=== PATIENT | female | born 1995 | race Caucasian/White ===

== ENCOUNTER 2022-06-13 13:50 | Outpatient (CLI) | payer BC, SELFPAY ==
--- NOTE | 2022-06-13 14:00 | CRLHL7_ITS ---
For Patients: As a result of the Century Cures Act, medical imaging exams and procedure reports are released immediately into your electronic medical record. You may view this report before your referring provider. If you have questions, please contact your health care provider. INDICATION: First trimester scan, establish dates. TECHNIQUE: Real-time nichole-scale imaging of the pelvis was performed. FINDINGS: Sonographic imaging demonstrates a single living intrauterine gestation. The embryo demonstrates a regular cardiac rate measuring 165 beats per minute. The embryo`s crown-rump length measurement of 7.1 cm corresponds to a gestational age of 13 weeks 2 days with a sonographic due date of 12/17/2022. There is a normal-appearing yolk sac. Right ovarian corpus luteum cyst. Left ovary not seen. IMPRESSION: Normal first trimester OB ultrasound exam. Gestational age calculated at 13 weeks 2 days with a sonographic due date of 12/17/2022 . Dictated by Jyoti Ontiveros MD @ 06/13/2022 5:59:52 PM (Electronically Signed)
== END 2022-06-13 13:51 | disposition home or self-care (01) ==
LOC: US 13:51
PROVIDERS: Visit Provider Advanced Practice Midwife
DX: Z34.91 Encounter for supervision of normal pregnancy, unspecified, first trimester (principal); Z3A.13 13 weeks gestation of pregnancy
CPT/HCPCS: 76801

== ENCOUNTER 2022-07-03 13:54 | Outpatient (CLI) | payer BC, SELFPAY ==
[2022-07-03 19:50] LABS: Hepatitis B Surface Antigen* Negative (Negative)
[2022-07-03 19:58] LABS: HIV 1/2/P24 Combo Screen* Negative (Negative)
[2022-07-03 20:07] LABS: Hepatitis C Virus Antibody* Negative (Negative)
[2022-07-05 14:27] LABS: Rapid Plasma Reagin (RPR) Non Reactive (Non Reactive)
[2022-07-05 15:17] LABS: Rubella Antibody IgG 13.5 IU/mL
== END 2022-07-03 13:55 | disposition home or self-care (01) ==
LOC: NFLDREF 16:46
PROVIDERS: Visit Provider Advanced Practice Midwife
DX: Z34.90 Encounter for supervision of normal pregnancy, unspecified, unspecified trimester (principal)
CPT/HCPCS: 86592; 86703; 86762; 86787; 86803; 86850; 86900; 86901; 87086; 87186; 87340

== ENCOUNTER 2022-07-31 13:58 | Outpatient (CLI) | payer BC, SELFPAY ==
--- NOTE | 2022-07-31 14:00 | CRLHL7_ITS ---
For Patients: As a result of the Century Cures Act, medical imaging exams and procedure reports are released immediately into your electronic medical record. You may view this report before your referring provider. If you have questions, please contact your health care provider. INDICATION: Evaluate anatomy. COMPARISON: 06/13/2022 TECHNIQUE: Real time nichole scale imaging of the fetus was performed as well as color Doppler analysis of the umbilical vessels. FINDINGS: Sonographic imaging demonstrates a single living intrauterine gestation. Fetus demonstrates a regular cardiac rate of 154 beats per minute. Fetus has a variable position. The placenta lies posteriorly without evidence of placenta previa. The edge of the placenta is located 3.8 cm from the internal cervical os. Amniotic fluid volume appears normal. Single deepest vertical pocket: 4.5 cm. The cervix is closed and measures 3.9 cm in length. The composite ultrasound gestational age is calculated at 19 weeks 2 days with an estimated sonographic due date of 12/23/2022. The estimated weight is 297 grams which lies at the 9th %. The following biometric measurements were obtained: Biparietal diameter: 4.3 cm/18 weeks 6 days 5th% Head circumference: 16.5 cm/19 weeks 1 day 4th% Abdominal circumference: 15.0 cm/20 weeks 2 days 38th% Femur length: 2.9 cm/18 weeks 5 days 4th% The HC/AC ratio measures: 1.10 range (1.09-1.26) On anatomic survey, there is a normal appearance of the cerebral ventricles, cavum septi pellucidi, cisterna magna and cerebellum. The nose, lips, and facial profile appear normal. The cervical, thoracic and lumbar spine are well visualized and appear normal. There is a normal four-chamber heart view and the left and right ventricular outflow tracts appear normal. The diaphragm and stomach appear normal. The kidneys and bladder also appear normal. There is a normal three-vessel cord and cord insertion site. The four extremities appear normal. IMPRESSION: No intrinsic abnormalities noted on anatomic survey. Sonographic gestational age 19 weeks 2 days and sonographic due date 12/23/2022. Sonographic age is 8 days behind the clinical age. Estimated weight 9th percentile. Abdominal circumference 38th percentile. Dictated by Marlon De La Vega MD @ 07/31/2022 4:05:10 PM (Electronically Signed)
== END 2022-07-31 13:59 | disposition home or self-care (01) ==
LOC: US 13:58
PROVIDERS: PCP Advanced Practice Midwife; Visit Provider Advanced Practice Midwife
DX: Z34.92 Encounter for supervision of normal pregnancy, unspecified, second trimester (principal); Z3A.19 19 weeks gestation of pregnancy
CPT/HCPCS: 76805

== ENCOUNTER 2022-09-26 12:00 | Outpatient (CLI) | payer BC, SELFPAY ==
--- NOTE | 2022-09-26 12:15 | CRLHL7_ITS ---
For Patients: As a result of the Cures Act, medical imaging exams and procedure reports are released immediately into your electronic medical record. You may view this report before your referring provider. If you have questions, please contact your health care provider. INDICATION: Third trimester scan, evaluate growth. IUGR COMPARISON: 07/31/2022 TECHNIQUE: Real time nichole scale imaging of the fetus was performed. FINDINGS: Sonographic imaging demonstrates a single living intrauterine gestation. Fetus demonstrates a regular cardiac rate of 159 beats per minute. Fetus has a breech position. The placenta lies posteriorly. Amniotic fluid volume appears normal and there is a single deepest vertical pocket: 4.5 cm. The estimated weight is 1225gm which lies at the 32nd %. On the prior OB ultrasound exam dated 07/31/2022 the estimated weight was at the 9th%. BPD 16th percentile. HC 12th percentile. AC 58th percentile. FL 14th percentile. The HC/AC ratio measures 1.05 range (1.01-1.21). IMPRESSION: Sonographic gestational age 28 weeks 2 days and sonographic due date of 12/17/2022. Correlation with dates. Normal interval growth. Estimated weight 32nd percentile. Abdominal circumference 58th percentile. Dictated by Marlon De La Vega MD @ 09/27/2022 12:58:01 PM (Electronically Signed)
== END 2022-09-26 12:01 | disposition home or self-care (01) ==
PROVIDERS: PCP Advanced Practice Midwife; Visit Provider Pediatrics Neonatal-Perinatal Medicine
DX: O36.5930 Maternal care for other known or suspected poor fetal growth, third trimester, not applicable or unspecified (principal); Z3A.28 28 weeks gestation of pregnancy
CPT/HCPCS: 76816; 86592

== ENCOUNTER 2022-11-21 13:41 | Outpatient (CLI) | payer BC, SELFPAY ==
[2022-11-22 16:19] LABS: Strep B DNA Probe NEGATIVE (Negative)
[2022-11-22 19:05] LABS: Strep B Pen/Amox Allergy No
== END 2022-11-21 13:42 | disposition home or self-care (01) ==
LOC: NFLDREF 13:41
PROVIDERS: PCP Advanced Practice Midwife; Visit Provider Advanced Practice Midwife
DX: Z34.93 Encounter for supervision of normal pregnancy, unspecified, third trimester (principal); Z3A.36 36 weeks gestation of pregnancy
CPT/HCPCS: 87081; 87653

== ENCOUNTER 2022-12-12 17:13 | Inpatient (IN) | payer BC, SELFPAY ==
[2022-12-12] VITALS (8 sets, daily range): BP systolic 96–120; BP diastolic 52–72; PULSE 77–98; BMI 25.2
--- NOTE | 2022-12-12 17:51 | W.PM.LDBA ---
Subjective History of Present Illness Time Seen by Provider: 17:51 Date Seen: 12/12/22 Comments: Patient is being admitted to Labor and Delivery for active labor, imminent delivery. She is a 27 year old at weeks gestation. Her full history and physical was dictated by Jorge Castañeda on 11/28/22. Please see this for details. ? Caro was seen in the clinic today where she requested a membrane sweep. She was found to be 5-6/80/-1, membrane sweep done. She arrived to labor & delivery in active labor, and spontaneous baring down shortly after. She declined to get in the tub for a waterbirth. She is coping well with labor pain/contractions. Her Lorenzo is with her for support. She is planning to go unmedicated. OB Problem List: -Lorenzo (chiropractor). 4 boys at home (at [facility] ages 6 years old to 8 months) Possibly plans to do 1 week of home glucose testing 1. Closely space pregnancies. Last 10/22/2021 2. Hx 3rd degree laceration w/o repair with 1st delivery 3. Hx shoulder dystocia. Unclear how long, how severe, and what was done to resolve it. Poor documentation. Possible body dystocia vs shoulder vs nuchal cordx3 and body cordx1. (first baby, 8 lb 13 oz, came out with both hands up. Other babies were 9 lbs, 8lbs 13oz, and 8lbs, 1 oz) 4. E.Coli in urine at B Declines treatment at this time, recommended antibiotics. Going to try home management. Declines CARMENZA 5. IUGR 9%ile at Anatomy Scan, RESOLVED Agrees to follow-up Level II/consult with Dr. Machado; 09/26/22 US showed 32% for growth H & P done 11/28/22 by Jorge Castañeda OB - Problem Based A/P Additional Plan (1) Uterine contractions: Status: Acute Plan at 39.4 weeks GBS neg Active labor, imminent delivery Hx of 3rd degree laceration Hx of possible shoulder dystocia Admit to L & D Intermittent monitoring per protocol Candidate for analgesia of choice, planning unmedicated Candidate for waterbirth, consent signed and Hep C negative Delivery imminent. Delivery/Labor/Induction Plan Plan: expectant management OB Exam Physical Exam Vital signs: Pulse BP 83 109/58 L 04/04/23 17:43 12/12/22 17:43 Narrative: VSS, afebrile? General Appearance:? Calm, cooperative.? No acute distress.? Normal affect.? Psychiatric Exam: Alert and oriented, appropriate affect? HEENT: normocephalic, neck supple, full ROM? Respiratory:? Symmetrical chest wall movement.? Normal respiratory effort.? Abdomen: Gravid, non tender? Extremities:? normal and trace edema? Skin: warm, dry.??? Ctx:? Q 2-3 min apart.? ? ? Strong? FHTs:? WNL per doppler by RN SVE: deferred? Membranes: intact on arrival, SROM, clear fluid occurred shortly after arrival with a ctx? Detailed Labor and Delivery Exam Patient Gravid: Yes
[2022-12-12 18:00] LABS: SARS PCR* Negative SARS-CoV-2 (Negative)
--- NOTE | 2022-12-12 18:00 | W.PM.OBVAGDE ---
OB Procedure Vag Delivery Mother Details Mother Details: The patient is a 27 year-old, 6, Para 5, admitted on 12/12/22 at 39.4 Days gestation. : 6 Para: 5 Weeks Gestation: 39.4 Admission Date: 12/12/22 Additional Details Amniotic Membrane Status: SROM Amniotic Membrane Rupture Date: 12/12/22 Amniotic Membrane Fluid Description: Clear Analgesia/Anesthesia Type: None Waterbirth: No Pitcoin: No Intrapartal Events: Precipitous Labor <3 Hrs Labor Onset: 16:00 Pushin:21 Heart: heart tones during second stage were WNL per doppler Delivery Details Delivery Date: 12/12/22 Delivery Time: 17:28 Route of delivery: Infant Gender: Female Viability: Alive; Heart Rate Present Position at Delivery: OA Delivery Details: Caro arrived with strong ctx. Spontaneous pushing occurred shortly after arrival. SROM, large amount of clear fluid also occurred with ctx. Shortly after this infant noted to be . She declined to get in the tub on arrival. She pushed on her left side. At 1728 a viable? female infant delivered in vertex OA presentation over intact perineum via spontaneous vaginal?delivery. ?Infant was placed on maternal abdomen. ?Cord was clamped and cut after a 5+ minute delay, once it stopped pulsing.? ? Infant weight pending. ? 9 at 1 minute and 9 at 5 minutes. ?Shoulder dystocia: no. ?Nuchal cord: no. Placenta delivered spontaneously and complete at 1741 with a 3 vessel cord. Mother and infant were stable after?delivery. Lacerations:? none Blood loss: 75 mL. Blood loss measurement type: QBL? Sponge and needles counts are correct. 1 Minute Interval Total Score: 9 5 Minute Interval Total Score: 9 Additional Details Shoulder Dystocia: No Placenta Delivery Time: 17:41 Placental Delivery Description: Spontaneous Procedure Done: Global Blood Loss: 75 Laceration: None Blood Loss Measurement Type: QBL Bakri Used: No Sponge/Need Count Correct: Yes Cord Vessel Description: 3 Vessels and Around Extremity Event Summary Status: Mother and infant were stable after delivery. Disposition: floor
[2022-12-13 00:36] VITALS: BP 96/62; PULSE 109; RESP 20; TEMP 36.6; O2SAT 97
[2022-12-13 04:39] VITALS: BP 100/70; PULSE 95; RESP 20; TEMP 36.6; O2SAT 95
--- NOTE | 2022-12-13 07:35 | PM.OBDSVD1 ---
DS: Providers Provider Date Seen: 12/13/22 Date of admission: 12/12/22 17:13 Primary care physician: Nohemy Castañeda CNM Admitting Clinician: Nohemy Castañeda CNM Attending Physician on discharge: Ramona Her CNM DS: Diagnosis Discharge Diagnosis (1) care and examination immediately after delivery: Status: Acute (2) Lactating mother: Status: Acute Exam Narrative: Exam Narrative: GENERAL APPEARANCE:? normal affect, alert, no distress MOOD:? appropriate CHEST:? clear to auscultation HEART:? regular rate and rhythm ABDOMEN:? soft, non-tender the uterine fundus is 1 below Umbilicus, Midline and is appropriate for the stage of recovery. PERINEUM:? mild edema of the perineum, intact EXTREMITIES:? normal and no edema Const: Vital Signs, click to edit/add: Vital Signs - 24 hr 12/12/22 17:43 12/12/22 17:58 12/12/22 18:12 Temperature Pulse Rate 83 81 77 Pulse Rate [Blood Pressure Cuff] Respiratory Rate Blood Pressure 109/58 L 96/52 L 99/65 Blood Pressure [Le ft Arm] Pulse Oximetry Oxygen Delivery Me thod 12/12/22 18:27 12/12/22 18:42 12/12/22 18:57 Temperature Pulse Rate 83 82 94 Pulse Rate [Blood Pressure Cuff] Respiratory Rate Blood Pressure 100/68 100/59 L 106/64 Blood Pressure [Le ft Arm] Pulse Oximetry Oxygen Delivery Me thod 12/12/22 19:13 12/12/22 19:27 12/13/22 00:36 Temperature 98 F Pulse Rate 98 95 Pulse Rate [Blood Pressure Cuff] 109 H Respiratory Rate 20 Blood Pressure 120/72 102/55 L Blood Pressure [Le ft Arm] 96/62 Pulse Oximetry 97 Oxygen Delivery Me thod Room Air 12/13/22 04:39 Temperature 97.8 F Pulse Rate Pulse Rate [Blood Pressure Cuff] 95 Respiratory Rate 20 Blood Pressure Blood Pressure [Le ft Arm] 100/70 Pulse Oximetry 95 Oxygen Delivery Me thod Room Air Documenting provider has reviewed patient's vital signs: yes OB - DS: Summary Hospital Course Hospital Course: The patient is a 27 year old G 6 P 5 at 39 4/7 weeks gestation that was admitted to the Center on 12/12/22 for spontaneous precipitous labor. She had an uncomplicated vaginal delivery. She delivered a viable female Moraima. The patient feels well. ?The pain is well controlled. She is not using pain medication. ?She has no new complaints. ?She is breast feeding and reports things are going well.? the patient has done well.? Vitals have been stable.? She has remained afebrile.? Has a good appetite, is tolerating a general diet. ?She is voiding without difficulty.? She is passing gas and has not had a bowel movement.? She is ambulating and denies any dizziness.? Has Small amount of rubra lochia. ?She declines control . Patient declines to have medications sent to pharmacy. Peripartum Data delivery method: Vaginal Laceration description: None complications: none Kipling Gender: Female Discharge Plan: Home Status at Discharge Functional status at discharge: independent ambulation Overall status at discharge: patient is progressing back to baseline Time Spent with Patient Time attestation: Total time spent providing and/or coordinating discharge services: Discharge Plan Discharge Disposition: Home, Self-Care Date of Admission: 12/12/22 17:13 Attending Provider on Discharge: Ramona Her Primary Care Provider: Nohemy Castañeda Condition: Stable Anticipated Discharge Date/Time: 12/13/22 17:00 Discharge Medications: New acetaminophen 500 mg Tablet 1,000 mg PO Q6H PRNQty: 0 0RF docusate sodium 100 mg Capsule 100 mg PO DAILY PRN (Reason: Constipation) Qty: 0 0RF ibuprofen 600 mg Tablet 600 mg PO Q6H PRNQty: 0 0RF Continued cholecalciferol (vitamin D3) 125 mcg (5,000 unit) capsule 125 mcg PO QDAY Daily Probiotic 2.5 billion cell capsule PO Discharge Orders: Discharge Order (Routine); Ordered 12/13/22 Ordered By: Ramona Her Patient Education: OB Over the Counter Medication Information, OB Vaginal/Breast Feeding Additional Instructions: Discharge instructions were reviewed with the patient including signs and symptoms of infection and home going medications Nothing vaginally for 6 weeks: no tampons or intercourse Off Work or School for 6 weeks Optional 2-week visit: discuss feeding concerns, review control options and screen for anxiety/depression. 6-week visit for an annual exam. consultation services are available to all mothers and babies for the first year after delivery.? To make an appointment, please call [phone]. Activity Level: Activity as Tolerated Discharge Diet: Regular Follow Up Appointments: [facility] [Provider Group] Forms: [facility] Info Instructions
[2022-12-13 07:56] VITALS: BP 86/60; PULSE 80; RESP 18; TEMP 36.7; O2SAT 97
[2022-12-13 12:01] VITALS: BP 102/65; PULSE 90; RESP 18; TEMP 36.7; O2SAT 96
[2022-12-13 16:03] VITALS: BP 97/62; PULSE 75; RESP 18; TEMP 36.7; O2SAT 96
== END 2022-12-13 18:38 | disposition home or self-care (01) | DRG 560 ==
LOC: OB OUT 17:28 → OB 17:28
PROVIDERS: Admitting Provider Advanced Practice Midwife; PCP Advanced Practice Midwife; Visit Provider Advanced Practice Midwife
DX: O62.3 Precipitate labor (principal); Z3A.39 39 weeks gestation of pregnancy; Z37.0 Single live birth
CPT/HCPCS: 87635

== ENCOUNTER 2023-06-26 07:30 | Outpatient (RCR) | payer BC, SELFPAY ==
--- NOTE | 2023-02-26 15:28 | PT.OPEX ---
PT [facility] Outpatient Eval PT [facility] Outpatient Eval Start: 02/22/23 07:51 Freq: Status: Active Protocol: Document 02/26/23 08:07 DENG (Rec: 02/26/23 08:12 DENG [id number]) E-signed By Rebeka Santos PT Physical Therapy Outpatient Evaluation Insurance Information Recert Due Date 04/27/23 Insurance Name Medicaid,Blue Cross/[employer] Shield Medical Diagnosis Post state PF weakness Routine follow up other female genital prolapse Treating Diagnosis weakness/lack of muscle coordination muscle spasms (Other) constipation - intermittent LBP dyspareunia vaginal numbness Referring MD Nohemy Castañeda CNM Subjective Subjective Caro presents with diagnosis of recovery and PFM weakness. Pt delivered her most recent baby on 12-12-22 (). Overall since the delivery she has been progressing nicely in regards to returning to her prior level of function. Pt has had 5 births in the past 7 years. Her most recent delivery went well and her recovery has been good. Pt reports the following concerns: Difficulty with BMs, pain with intercourse, possible SHAKIRA, unsure how to progress to promote PFM function, and LBP. Pt reports here bladder function overall is good. Does have some issues with the frequency she is urinating but denies any UI. Frequent sensation of UTIs, without testing, but will resolve within days. Does have a hx/o Kidney stones. Pt does struggle with bowel function. Has struggled with intermittent bowel issues since youth, needing to splint to be able to have BMs. Pt reports pain, and change in sensation, with intercourse. Her goals for therapy include strengthening her core, improving function of PFM and improving her SHAKIRA. Date of Last Physician Visit 01/04/23 Assessment Assessment/Impression 27 yo client presents with post concerns. Her concerns include: difficulty and splinting needed with BMs iris firmer stools, labia pain/ scar tissue and vaginal numbness with intercourse, SHAKIRA and core weakness ( especially gluteals), and LBP . During the evaluation did find pt's urination can occur hourly to every 6 hours. She is drinking good amount of fluid. Pt has been struggling with bowel dysfunction since her youth. Initially after her most recent delivery, was struggling again with bowel function and needing to splint to have a BM. Started to use rectal dilators which have helped and now does not need to splint as often. Has used a squatty potty with some success. Has changed her diet , in the past, which has helped to reduce constipation but unable to continue due to having 5 children and inability to modify just her diet. Pain is present in vulvar region with direct pressure. This pain has been improving as she time goes on. The pain is thought to be related to scar tissue from one of her previous deliveries . Does report occasional sensation of UTI during PIV which is uncomfortable. Also reports having a reduce sensation/numbness in the vagina and struggles more with ability to climax. Her LBP has been present for years and is mostly related to doing exs. Her spouse is a chiro and is able to work on her as needed. Struggles to fire her gluteals. Did not have time to complete assessment of her lumbopelvic region and PFM today. Will complete the assessment at her next session. Pt is appropriate for further skilled PT services including use of therapeutic exercise, therapeutic activities, neuromuscular re-ed, manual therapy, and self cares for symptom reduction. Plan of Care Rehabilitation Potential Good Physical Therapy Goals Short term goals to be achieved in 4 weeks. 1. Able to report voiding intervals of 1X every 2-4 hours, 60% of the time. 2. Pt will be able to demonstrate proper mechanics with all ADLs and child caring activities (ie lifting/ carrying children, transferring, bending, etc) including ability to manage IAP, to reduce pelvic and LB pain/symptoms. 3. Pt will demonstrate decreased resting tone/muscle activity following a PFM contraction (<3 microvolts) to restore PFM tone/activity to normal levels. rodent exterminator goals to be achieved in 12 weeks. 1. Pt will be independent with home program for symptom reduction that are safe for her current post phase and for her SHAKIRA symptoms. 2. Able to have symptom free intercourse, 3 out of 4 trials. 3. Pt will demonstrate proper toileting posture and pushing techniques to improve ability to start and fully empty bowels, without need to splint 75% of the time or greater . Coordination/Communication With Referral Source Treatment Plan/Direct Interventions Joint Mobilization,Manual Therapy,Neuromuscular Re-ed, Self-Care/Home Management, Therapeutic Activities, Therapeutic Exercises Frequency/Duration 1 time a week for up to 12 visits Patient Will Be Discharged From Therapy Completion of LTG(s),Skills Plateau,Independent w/HEP, Independently Progressing Evaluation Billing Untimed Code Treatment Minutes 45 Complexity Moderate Certification Information Initial Certification Date 02/26/23 Ending Certification Date 04/27/23 Provider Signature Shows Agreement With POC & Medical Necessity Physician Signature & Date Requested Please Sign/Date Here Physician Comment/Change : Physician NPI Number #
--- NOTE | 2023-06-12 15:30 | PT.OPDNX ---
PT [facility] Daily Note PT [facility] Daily [facility] Start: 02/22/23 07:51 Freq: Status: Active Protocol: Document 06/12/23 07:34 DENG (Rec: 06/12/23 08:27 DENG [id number]) E-signed By Rebeka Santos, PT PT OP Daily Progress Note Visit Information Note Type Daily Note,Recert/Progress Note Visit Number [id number] Insurance Information Recert Due Date 04/27/23 Insurance Name Medicaid,Blue Cross/Blue Shield Medical Diagnosis Post state PF weakness Routine follow up other female genital prolapse Treating Diagnosis weakness/lack of muscle coordination muscle spasms (Other) constipation - intermittent LBP dyspareunia vaginal numbness Referring MD Nohemy Castañeda CNM Subjective Subjective Pt reports she is overall doing fine. Had some family issues so was not able to attend PT since March 27. During this time struggled to do her HEP as much as she should. Now that things are doing better at home, she has been able to do more. PFM are doing well. More mobility in the back and PFM with compliance again with her HEP. Did back off of the dilators for a while, due to having fissures, but is back to using them and has not lost too much ground. Bowel function currently is good. Has notice very mild UI if she tried to hold her urine too long to get to the bathroom. Has also had some intermittent pubic pain iris when doing the quad hip ext/bird dog exs. Some pain in the LS region. Also worked through a bout of mastitis. Sexual function is going well as is improvement with her sensation. Home Exercise Home Exercise Comments Access Code: [email or web address] URL: [email or web address] Date: 06/12/2023 Prepared by: Anna Santos Exercises - Supine Piriformis Stretch with Leg Straight - 1 x daily - 1 sets - 2-4 reps - 20-30 sec hold - Supine Figure 4 Piriformis Stretch - 1 x daily - 1 sets - 2-4 reps - 20-30 sec hold - Cat Cow - 1 x daily - 1 sets - 5-10 reps - 5-10 sec hold - Quadruped Full Range Thoracic Rotation with Reach - 1 x daily - 1 sets - 5-10 reps - 5 sec hold - Child's Pose - 1 x daily - 1 sets - 2-4 reps - 20-60 sec hold - Downward Dog - 1 x daily - 1 sets - 2-4 reps - 10-20 sec hold - Quadruped Pelvic Tilt - 1 x daily - 1 sets - 5-10 reps - 5 sec hold - Quadruped Alternating Arm Lift - 1 x daily - 1 sets - 10 reps - Quadruped Single Leg Extension - 1 x daily - 3 x weekly - 1-2 sets - 10-20 reps - 5 sec hold - Bird Dog - 1 x daily - 3 x weekly - 1-2 sets - 10-20 reps - 5 sec hold - Lateral Step Down - 1 x daily - 1-2 sets - 10-15 reps - Forward T - 1 x daily - 1-2 sets - 10-15 reps Objective Other/Pertinent Objective Pt's daughter was present and awake during her PT session, and needed to be feed which limited treatment time. Patient Instructed in Risks/Benefits Yes Therapeutic Exercise Therapeutic Exercise Minutes (minutes) 25 Therapeutic Exercise: To Restore Worked with pt on the Functional Status following exs to try to improve function and strength of core and PFM - Will resume vaginal wts - to work on kinestfh\etic awareness and control/strength of PFM -stopped bird dog or quad hip ext due to symptoms. -Added in exs to HEP to work on pelvic stability - RDL (single leg to just prox to knee height) Step ups 3 hip hikes(?0 - discuss and pt did perform but forgot to add to her exs program bottoms up. *Pt did need cueing initially to perform the above exs correctly. By end of session was independent Manual Therapy Techniques Manual Therapy Minutes (minutes) 5 Manual Therapy Techniques quick review of returning to using the PF wand as needed. Treatment Minutes Timed Code Treatment Minutes 30 Total Treatment Time 30 Billing Units Therapeutic Exercise Units 2 Assessment/Impression Assessment/Impression Did not assess PFM status today due to treatment being limited with pt's infant daughter being present today. Overall she is doing well. Did advance/modify her HEP to work on more pelvic stability. Did well with the new exs. Did caution her to start slow and progress as able. Significant weakness is noted in lower abdominals but did well with the bottoms up exs. Would benefit from continued PT services to further progress her core to help promote less pain and improvement in her PFM and overall function. Plan is to continue with further skilled PT services including use of therapeutic exercise, therapeutic activities, neuromuscular re-ed, manual therapy, and self cares for transitioning pt to independent self manage and for symptoms reduction Plan of Care Physical Therapy Goals Short term goals to be achieved in 4 weeks. 1. Able to report voiding intervals of 1X every 2-4 hours, 60% of the time. IMPROVING 2. Pt will be able to demonstrate proper mechanics with all ADLs and child caring activities (ie lifting/ carrying children, transferring, bending, etc) including ability to manage IAP, to reduce pelvic and LB pain/symptoms. IMPROVING 3. Pt will demonstrate decreased resting tone/muscle activity following a PFM contraction (<3 microvolts) to restore PFM tone/activity to normal levels. IMPROVING long-term goals to be achieved in 12 weeks. 1. Pt will be independent with home program for symptom reduction that are safe for her current phase and for her SHAKIRA symptoms. IMPROVING 2. Able to have symptom free intercourse, 3 out of 4 trials. MET 3. Pt will demonstrate proper toileting posture and pushing techniques to improve ability to start and fully empty bowels, without need to splint 75% of the time or greater. IMPROVING Daily Plan of Care Continue per POC,Change POC; See Comments Daily Plan of Care Comments will cont with 2-5 more session for advancement and modification of her home program. Recertification Information Initial Certification Date 02/26/23 Recertification Start Date 06/12/23 Recertification Due Date 08/11/23 Reasons to Continue Skilled Therapy Pt has not been seen in PT since March 27 due to family issues. Her progress as been slowed due to her not being able to attend PT and limited compliance at home. Pt did return to her HEP weeks ago. Overall is feeling like she has progressed with returning to her HEP. Will work on fine tuning for home program for pt to progress into a better home program to address her UI symptoms, and work on IAP management and body mechanics. Rehabilitation Potential good Continued Plan of Care and Interventions Luis continue with up to 2-5 more sessions to transition to independent self management Provider Signature Shows Agreement With POC & Medical Necessity Physician Comment/Change Comment or Changes Physician NPI Number #
== END 2023-10-24 23:59 | disposition home or self-care (01) ==
PROVIDERS: PCP Advanced Practice Midwife; Visit Provider Advanced Practice Midwife
DX: Z39.2 Encounter for routine postpartum follow-up (principal); N81.89 Other female genital prolapse; R53.1 Weakness; R27.8 Other lack of coordination; M62.838 Other muscle spasm; K59.09 Other constipation; M54.50 Low back pain, unspecified; N94.10 Unspecified dyspareunia; R20.0 Anesthesia of skin; N94.89 Other specified conditions associated with female genital organs and menstrual cycle; Z51.89 Encounter for other specified aftercare
CPT/HCPCS: 97110; 97112; 97140; 97162; 97535